=== PATIENT | female | born 1945 | race Caucasian/White ===

== ENCOUNTER 2017-02-26 10:22 | Emergency (ER) | payer MEDICARE ==
[~2017-02-26] VITALS: Ht 162.6 cm; Wt 72.6 kg
--- NOTE | 2017-02-26 10:34 | PHYS DOC ---
Adult General Chief Complaint Chief Complaint: HEADACHE HPI HPI Patient is a 71 year old female who presents with generalized weakness. She states she woke up this morning after she took an Ambien last night and had a migraine and took her Imitrex and felt very "odd". She states that she tried to eat but her mouth with some dried she had difficulty eating. She was seen by urgent care and was extremely weak. She was transferred from the urgent care to the ER for additional workup. She denies any fevers chills nausea vomiting, focal neurological weakness. She states his same thing happened several years ago when she had extreme high blood pressure weakness and was hospitalized for 4 days. Since this was started on blood pressure medicines by her primary care physician. She states she's been really stressed out recently secondary to a move from [place] to [place] and her out of town. She states she does have a history of high gr and uses Imitrex as needed. She also has been on Ambien for the last week. Review of Systems Review of Systems Constitutional: Denies fever or chills [] Eyes: Denies change in visual acuity, redness, or eye pain [] HENT: Denies nasal congestion or sore throat [] Respiratory: Denies cough or shortness of breath [] Cardiovascular: No additional information not addressed in HPI [] GI: Denies abdominal pain, nausea, vomiting, bloody stools or diarrhea [] : Denies dysuria or hematuria [] Musculoskeletal: Denies back pain or joint pain [] Integument: Denies rash or skin lesions [] Neurologic: Denies headache, focal weakness or sensory changes [] Endocrine: Denies polyuria or polydipsia [] Current Medications Current Medications Current Medications Medications (Trade) Dose Ordered Sig/Rosina Start Time Stop Time Status Last Admin Dose Admin Acetaminophen/ Aspirin/Caffeine (Excedrin Migraine) 2 tab PRN Q6HRS PRN 02/26/17 13:00 02/26/17 13:20 2 TAB Sodium Chloride 1,000 ml @ 1,000 mls/hr 1X ONCE 02/26/17 13:15 02/26/17 14:14 DC 02/26/17 13:16 1,000 MLS/HR Allergies Allergies Allergies Coded Allergies Type Severity Reaction Last Updated Verified No Known Drug Allergies 02/26/17 No Physical Exam Physical Exam Constitutional: Well developed, well nourished, no acute distress, non-toxic appearance. [] HENT: Normocephalic, atraumatic, bilateral external ears normal, oropharynx moist, no oral exudates, nose normal. [] Eyes: PERRLA, EOMI, conjunctiva normal, no discharge. [] Neck: Normal range of motion, no tenderness, supple, no stridor. [] Cardiovascular:Heart rate regular rhythm, no murmur [] Lungs & Thorax: Bilateral breath sounds clear to auscultation [] Abdomen: Bowel sounds normal, soft, no tenderness, no masses, no pulsatile masses. [] Skin: Warm, dry, no erythema, no rash. [] Back: No tenderness, no CVA tenderness. [] Extremities: No tenderness, no cyanosis, no clubbing, ROM intact, no edema. [] Neurologic: Alert and oriented X 3, normal motor function, normal sensory function, no focal deficits noted. [] Psychologic: Affect normal, judgement normal, mood normal. [] Current Patient Data Vital Signs Vital Signs Date Time Temp Pulse Resp B/P (MAP) Pulse Ox O2 Delivery O2 Flow Rate FiO2 02/26/17 13:30 82 22 152/94 (113) 98 Room Air 02/26/17 10:28 98.0 98.0 Lab Values Laboratory Tests Test 02/26/17 10:44 02/26/17 11:35 02/26/17 14:25 Urine Collection Type Void Urine Color Yellow Urine Clarity Clear Urine pH 7.5 Urine Specific Viper 1.020 Urine Protein Negative mg/dL (NEG-TRACE) Urine Glucose (UA) Negative mg/dL (NEG) Urine Ketones (Stick) Negative mg/dL (NEG) Urine Blood Negative (NEG) Urine Nitrite Negative (NEG) Urine Bilirubin Negative (NEG) Urine Urobilinogen Dipstick 0.2 mg/dL (0.2 mg/dL) Urine Leukocyte Esterase Small (NEG) Urine RBC 0 /HPF (0-2) Urine WBC 0 /HPF (0-4) Urine Squamous Epithelial Cells Few /LPF Urine Bacteria 0 /HPF (0-FEW) White Blood Count 6.6 x10^3/uL (4.0-11.0) Red Blood Count 5.00 x10^6/uL (3.50-5.40) Hemoglobin 14.8 g/dL (12.0-15.5) Hematocrit 44.1 % (36.0-47.0) Mean Corpuscular Volume 88 fL (79-100) Mean Corpuscular Hemoglobin 30 pg (25-35) Mean Corpuscular Hemoglobin Concent 34 g/dL (31-37) Red Cell Distribution Width 13.7 % (11.5-14.5) Platelet Count 188 x10^3/uL (140-400) Neutrophils (%) (Auto) 79 % (31-73) H Lymphocytes (%) (Auto) 16 % (24-48) L Monocytes (%) (Auto) 4 % (0-9) Eosinophils (%) (Auto) 1 % (0-3) Basophils (%) (Auto) 0 % (0-3) Neutrophils # (Auto) 5.2 x10^3uL (1.8-7.7) Lymphocytes # (Auto) 1.0 x10^3/uL (1.0-4.8) Monocytes # (Auto) 0.3 x10^3/uL (0.0-1.1) Eosinophils # (Auto) 0.0 x10^3/uL (0.0-0.7) Basophils # (Auto) 0.0 x10^3/uL (0.0-0.2) Sodium Level 146 mmol/L (136-145) H Potassium Level 3.9 mmol/L (3.5-5.1) Chloride Level 108 mmol/L (98-107) H Carbon Dioxide Level 29 mmol/L (21-32) Anion Gap 9 (6-14) Blood Urea Nitrogen 18 mg/dL (7-20) Creatinine 0.8 mg/dL (0.6-1.0) Estimated GFR (Cockcroft-Gault) 70.9 Glucose Level 112 mg/dL (70-99) H Calcium Level 9.1 mg/dL (8.5-10.1) Magnesium Level 2.0 mg/dL (1.8-2.4) Total Bilirubin 0.5 mg/dL (0.2-1.0) Direct Bilirubin 0.2 mg/dL (0.0-0.2) Aspartate Amino Transferase (AST) 26 U/L (15-37) Alanine Aminotransferase (ALT) 31 U/L (14-59) Alkaline Phosphatase 119 U/L (46-116) H Creatine Kinase 216 U/L (26-192) H 209 U/L (26-192) H Creatine Kinase MB (Mass) 2.0 ng/mL (0.0-3.6) 1.9 ng/mL (0.0-3.6) Creatine Kinase MB Relative Index 0.9 % (0-4) 0.9 % (0-4) Troponin I Quantitative < 0.017 ng/mL (0.000-0.055) < 0.017 ng/mL (0.000-0.055) XI-Xzz-A-Type Natriuretic Peptide 165 pg/mL (0-124) H Total Protein 7.2 g/dL (6.4-8.2) Albumin 4.0 g/dL (3.4-5.0) Thyroid Stimulating Hormone (TSH) 2.479 uIU/mL (0.358-3.74) Laboratory Tests 02/26/17 11:35 Laboratory Tests 02/26/17 11:35 EKG EKG EKG shows sinus rhythm [address] elevations or T-wave inversions appreciated, normal axis, QTC 427 ms, as interpreted by me. Radiology/Procedures Radiology/Procedures [facility] [address] [place] [address] IMAGING REPORT Signed PATIENT: YOEL OLIVERA ACCOUNT: [id number] : 1945 LOCATION: ER AGE: 71 SEX: F EXAM STATUS: PRE ER ORD. PHYSICIAN: QUINCY OCHOA MD REASON: weakness PROCEDURE: PORTABLE CHEST 1V Indication weakness. Hypertension. Protocol study. A single view chest was obtained. No prior imaging of the chest is available. Heart size pulmonary vessels and mediastinum appear normal. There is no acute parenchymal infiltrate. Significant pleural fluid is not seen. There is no pneumothorax. There may be some slight pleural thickening at the left lung apex. Follow-up imaging should be considered. IMPRESSION: No acute finding apparent in the chest. Suspect pleural thickening at the left lung apex DICTATED and SIGNED BY: PEDRO CANNON MD DATE: 02/26/17 1040 CC: QUINCY OCHOA MD ~ Impressions: Headache Weakness Hypertension Course & Med Decision Making Course & Med Decision Making Pertinent Labs and Imaging studies reviewed. (See chart for details) Patient presented with weakness from urgent care. Her headache was treated with Excedrin. She received IV fluids and was watched for several hours. Repeat troponin and CK-MB were normal. She's being discharged home. She did have some elevated blood pressures ranging 140s to 170s. She denies headache, lightheadedness dizziness chest discomfort other concerns. She will need to follow-up with primary care physician. Return precautions given. She is agreeable to the plan and being discharged in stable condition. Dragon Disclaimer Dragon Disclaimer This electronic medical record was generated, in whole or in part, using a voice recognition dictation system. Departure Departure Impression: Primary Impression: Weakness Disposition: 09 ADMITTED INPATIENT Condition: STABLE Patient Instructions: Weakness Additional Instructions: You were seen today for your weakness, and your headache. Your blood work did not show any acute abnormalities. You felt better with IV hydration. Your being discharged home. You will need to follow-up with primary care physician. A list has been divided to you. I would discourage you from taking any more Ambien. Return ER for severe weakness, confusion, fevers, or other concerns. QUINCY OCHOA MD Feb 26, 2017 10:34
--- NOTE | 2017-02-26 10:44 | RAD ---
Indication weakness. Hypertension. Protocol study. A single view chest was obtained. No prior imaging of the chest is available. Heart size pulmonary vessels and mediastinum appear normal. There is no acute parenchymal infiltrate. Significant pleural fluid is not seen. There is no pneumothorax. There may be some slight pleural thickening at the left lung apex. Follow-up imaging should be considered. IMPRESSION: No acute finding apparent in the chest. Suspect pleural thickening at the left lung apex
[2017-02-26 10:57] LABS: BILIRUBIN,URINE NEGATIVE (NEG); GLUCOSE,URINE NEGATIVE (NEG); NITRITE,URINE NEGATIVE (NEG); PH,URINE 7.5; PROTEIN,URINE NEGATIVE (NEG-TRACE); UROBILINOGEN,URINE 0.2 mg/dL (0.2 mg/dL)
[2017-02-26 11:15] LABS: BACTERIA,URINE 0 /HPF (0-FEW); RBC,URINE 0 /HPF (0-2); SQUAMOUS EPITHELIAL CELL,UR FEW /LPF; WBC,URINE 0 /HPF (0-4)
[2017-02-26 11:57] LABS: CALCIUM 9.1 mg/dL (8.5-10.1); CREATININE 0.8 mg/dL (0.6-1.0); GFR 70.9; POTASSIUM 3.9 mmol/L (3.5-5.1)
[2017-02-26 12:00] LABS: BASO % 0 % (0-3); EOS % 1 % (0-3); HEMATOCRIT 44.1 % (36.0-47.0); HEMOGLOBIN 14.8 g/dL (12.0-15.5); LYMPH % 16 % (24-48); MEAN CORPUSCULAR HEMOGLOBIN 30 pg (25-35); MEAN CORPUSCULAR HGB CONC 34 g/dL (31-37); MEAN CORPUSCULAR VOLUME 88 fL (79-100); MONO % 4 % (0-9); NEUT % 79 % (31-73); PLATELET COUNT 188 x10^3/uL (140-400); RED CELL DISTRIBUTION WIDTH 13.7 % (11.5-14.5); WHITE BLOOD COUNT 6.6 x10^3/uL (4.0-11.0)
[2017-02-26 12:12] LABS: DIRECT BILIRUBIN 0.2 mg/dL (0.0-0.2); TOTAL BILIRUBIN 0.5 mg/dL (0.2-1.0); TOTAL PROTEIN 7.2 g/dL (6.4-8.2)
[2017-02-26] MEDS ORDERED: ASA/APAP/CAFFEINE 250/250/65MG TABLET. PO PRN (13:00)
[2017-02-26] MEDS ORDERED: IV NORMAL SALINE 1000ML BAG 1,000 ML IV ONE (13:15)
[2017-02-26 13:30] VITALS: BP 152/94
--- NOTE | 2017-02-26 14:04 | EKG ---
[facility] [address] [place] [address] Test Date: 2017-02-26 Test Time: 10:35:19 Pat Name: YOEL OLIVERA Department: Room: Gender: F Furnace [employer]: : 1945 Requested By: QUINCY OCHOA Order Number: [id number] Reading MD: Measurements Intervals [place] Rate: 77 P: 49 NM: 128 QRS: 33 QRSD: 86 T: 39 QT: 376 QTc: 427 Interpretive Statements SINUS RHYTHM NORMAL ECG RI6.01 Unconfirmed report No previous ECG available for comparison
[2017-02-26 15:02] LABS: CKMB MASS 1.9 ng/mL (0.0-3.6)
== END 2017-02-26 15:55 | disposition other institution (70) ==
LOC: ER 10:22
DX: R53.1 Weakness (principal); R51 Headache; I10 Essential (primary) hypertension
CPT/HCPCS: 36415; 71010; 80048; 80076; 81001; 82553; 83735; 83880; 84443; 84484; 85027; 87086; 93005; 96360; 96361; 99285; J7030